=== PATIENT | female | born 1985 | race Two or more races ===

== ENCOUNTER 2017-09-05 18:48 | Emergency (ER) | payer MEDICAID ==
--- NOTE | 2017-09-05 19:17 | NUR ---
PATIENT LEFT WITHOUT BEING TRIAGED OR SEEN BY [facility]
== END 2017-09-05 19:20 | disposition left against medical advice (07) ==
LOC: ER 18:50
DX: Z53.21 Procedure and treatment not carried out due to patient leaving prior to being seen by health care provider (principal)
CPT/HCPCS: J7030